=== PATIENT | male | born 1960 | race African-American/Black ===

== ENCOUNTER 2016-08-20 09:57 | Emergency (ER) | payer MEDICAID ==
[~2016-08-20] VITALS: Ht 170.2 cm; Wt 96.0 kg
[~2016-08-20 09:57] MED LIST: ASPI-1035 PO
[2016-08-20 10:33] VITALS: BP 123/89
[2016-08-20] MEDS ORDERED: BACITRACIN ZINC OINT UDPKT TOP ONE (11:15)
== END 2016-08-20 11:39 | disposition home or self-care (01) ==
LOC: ER 10:40
DX: S30.812A Abrasion of penis, initial encounter (principal); X58.XXXA Exposure to other specified factors, initial encounter; Y93.89 Activity, other specified; Y92.89 Other specified places as the place of occurrence of the external cause; I11.0 Hypertensive heart disease with heart failure; I50.9 Heart failure, unspecified; E11.9 Type 2 diabetes mellitus without complications; Z95.0 Presence of cardiac pacemaker
CPT/HCPCS: 99283

== ENCOUNTER 2016-12-10 08:41 | Emergency (ER) | payer MEDICAID ==
[~2016-12-10] VITALS: Ht 170.2 cm; Wt 72.9 kg
[2016-12-10] MEDS ORDERED: LEVOFLOXACIN 750MG PREMIX 150 ML IV ONE (11:30)
[2016-12-10] MEDS ORDERED: SODIUM CHLORIDE 0.9% 1,000 ML IV ONE (11:30)
[2016-12-10 14:29] VITALS: BP 110/72
== END 2016-12-10 14:35 | disposition home or self-care (01) ==
LOC: ER 10:10
DX: J18.9 Pneumonia, unspecified organism (principal); I10 Essential (primary) hypertension; E11.9 Type 2 diabetes mellitus without complications; E78.00 Pure hypercholesterolemia, unspecified; F17.210 Nicotine dependence, cigarettes, uncomplicated; Z71.6 Tobacco abuse counseling
CPT/HCPCS: 71020; 96365; 99284; 99406; J1956; J7030

== ENCOUNTER 2017-06-11 08:26 | Emergency (ER) | payer MEDICAID ==
[~2017-06-11] VITALS: Ht 170.2 cm; Wt 80.0 kg
[2017-06-11 08:39] VITALS: BP 147/80
== END 2017-06-11 12:02 | disposition home or self-care (01) ==
LOC: ER 08:36
DX: R91.8 Other nonspecific abnormal finding of lung field (principal); R05 Cough; F17.210 Nicotine dependence, cigarettes, uncomplicated; J44.9 Chronic obstructive pulmonary disease, unspecified; I10 Essential (primary) hypertension; E11.9 Type 2 diabetes mellitus without complications; E78.5 Hyperlipidemia, unspecified; Z95.0 Presence of cardiac pacemaker
CPT/HCPCS: 71045; 71250; 99284

== ENCOUNTER 2017-11-17 07:57 | Emergency (ER) | payer MEDICAID ==
[~2017-11-17] VITALS: Ht 170.2 cm; Wt 76.0 kg
[2017-11-17] MEDS ORDERED: LIDOCAINE HCL 1% 20ML VIAL (Pyxis) INJ INFIL ONE (10:00)
[2017-11-17] MEDS ORDERED: ACETAMINOPHEN WITH CODEINE 300/30MG TABLET PO ONE (10:00)
[2017-11-17] MEDS ORDERED: LIDOCAINE HCL/PF 1% 10 MG/ML 5ML VIAL IJ ONE (10:15)
[2017-11-17 10:29] VITALS: BP 124/82
== END 2017-11-17 11:34 | disposition home or self-care (01) ==
LOC: ER 08:55
DX: L02.413 Cutaneous abscess of right upper limb (principal); E11.9 Type 2 diabetes mellitus without complications; F17.200 Nicotine dependence, unspecified, uncomplicated
CPT/HCPCS: 10060; 99283; J3490

== ENCOUNTER 2018-01-03 07:58 | Emergency (ER) | payer MEDICAID ==
[~2018-01-03] VITALS: Ht 170.2 cm; Wt 81.4 kg
[2018-01-03] MEDS ORDERED: LIDOCAINE HCL 1% 20ML VIAL (Pyxis) INJ INFIL ONE (10:00)
[2018-01-03] MEDS ORDERED: LIDOCAINE HCL/PF 1% 10 MG/ML 5ML VIAL IJ NR (10:15)
[2018-01-03 11:45] VITALS: BP 116/88
== END 2018-01-03 12:05 | disposition home or self-care (01) ==
LOC: ER 08:28
DX: L03.317 Cellulitis of buttock (principal); L02.31 Cutaneous abscess of buttock; E11.9 Type 2 diabetes mellitus without complications; F17.200 Nicotine dependence, unspecified, uncomplicated
CPT/HCPCS: 10060; 99283; J3490; Z7610

== ENCOUNTER 2019-06-13 11:15 | Inpatient (IN) | payer OTHER, MEDICAID ==
[~2019-06-13] VITALS: Ht 170.2 cm; Wt 82.1 kg
[2019-06-13 14:04] LABS: BASOPHILS % 0.1 % (0.0-2.0); EOSINOPHILS % 0.3 % (0.0-5.0); HEMATOCRIT. 43.9 % (42.0-52.0); HEMOGLOBIN. 14.5 g/dL (14.0-18.0); LYMPHOCYTES % 25.3 % (20.0-50.0); MEAN CORPUSCULAR HEMOGLOBIN 28.8 pg (28.0-32.0); MEAN CORPUSCULAR VOLUME 87.4 fL (80.0-94.0); MEAN PLATELET VOLUME 8.7 fl (7.4-10.4); MONOCYTES % 5.6 % (2.0-8.0); NEUTROPHILS % 68.7 % (40.0-76.0); PLATELET 207 x1000/uL (130-400); RED BLOOD CELL COUNT 5.02 mill/uL (4.7-6.1); RED CELL DISTRIBUTION WIDTH 14.6 % (11.6-14.6)
[2019-06-13 14:10] LABS: CHLORIDE 104 mEq/L (98-107)
[2019-06-13 14:14] LABS: ETHANOL BLOOD < 10 mg/dL
[2019-06-13 14:14] LABS: CLARITY URINE CLEAR (CLEAR); COLOR URINE YELLOW (YELLOW); KETONES URINE NEGATIVE (NEGATIVE); LEUKOCYTE ESTERASE URINE NEGATIVE (NEGATIVE); NITRITE URINE NEGATIVE (NEGATIVE); OCCULT BLOOD URINE NEGATIVE (NEGATIVE); PH URINE 5.5 (4.5-8.0); PROTEIN URINE NEGATIVE (NEGATIVE); UROBILINOGEN URINE 0.2 E.U./dL (0.2-1.0)
[2019-06-13 14:36] LABS: *AMPHETAMINES SCREEN URINE NEGATIVE (NEGATIVE); *BARBITURATES SCREEN URINE NEGATIVE (NEGATIVE); *BENZODIAZEPINES SCREEN URINE NEGATIVE (NEGATIVE); *COCAINE SCREEN URINE NEGATIVE (NEGATIVE)
[2019-06-13] MEDS ORDERED: SODIUM CHLORIDE 0.9% 1,000 ML IV ONE (14:36)
[2019-06-13 14:37] LABS: METHADONE URINE SCREEN NEGATIVE (NEGATIVE); OPIATES URINE SCREEN NEGATIVE (NEGATIVE)
[2019-06-13 14:38] LABS: CANNABINOID URINE SCREEN PRESUMTIVE POSITIVE (NEGATIVE); PHENCYCLIDINE URINE SCREEN NEGATIVE (NEGATIVE)
[2019-06-13] MEDS ORDERED: HYDROCODONE/ACETAMINOPHEN 5/325MG TABLET PO PRN (19:00)
[2019-06-13] MEDS ORDERED: IPRATROPIUM/ALBUTEROL 0.5-3(2.5)MG/3ML NEB NEB PRN (19:00)
[2019-06-13] MEDS ORDERED: LORAZEPAM 0.5MG TABLET PO PRN (19:00)
[2019-06-13] MEDS ORDERED: MAGNESIUM/ALUMINUM HYDROXIDE/SIMETHICONE 30ML UDC PO PRN (19:00)
[2019-06-13] MEDS ORDERED: CLONIDINE 0.1MG TABLET PO PRN (19:00)
[2019-06-13] MEDS ORDERED: ACETAMINOPHEN 325MG TABLET PO PRN (19:00)
[2019-06-13] MEDS ORDERED: GUAIFENESIN 200MG/10ML SUGAR FREE UDC PO PRN (19:00)
[2019-06-13] MEDS ORDERED: ACETAMINOPHEN 650MG SUPP PR PRN (19:00)
[2019-06-13] MEDS ORDERED: DOCUSATE SODIUM 100MG CAPSULE PO PRN (19:00)
[2019-06-13] MEDS ORDERED: DEXTROSE 50% WATER 50ML SYRINGE IV PRN (19:00)
[2019-06-13] MEDS ORDERED: NA PHOS,M-B/NA PHOS,DI-BA ENEMA 118ML PR PRN (19:00)
[2019-06-13] MEDS ORDERED: ONDANSETRON HCL 4MG/2ML INJ IV PRN (19:00)
[2019-06-13 21:30] VITALS: BP 106/68
[2019-06-13] MEDS: SODIUM CHLORIDE 0.45% 1,000 ML IV SCH (23:55)
[2019-06-13] MEDS: NICOTINE 21MG PATCH TD SCH (23:56)
[2019-06-14] VITALS (12 sets, daily range): BP systolic 90–121; BP diastolic 49–79
[2019-06-14 01:06] LABS: CREATINE KINASE 162 IU/L (39-308)
[2019-06-14 01:07] LABS: CREATINE KINASE MB FRACTION 1.7 ng/mL (0.5-3.6)
[2019-06-14 06:09] LABS: BASOPHILS % 0.3 % (0.0-2.0); EOSINOPHILS % 0.8 % (0.0-5.0); HEMATOCRIT. 40.9 % (42.0-52.0); HEMOGLOBIN. 13.4 g/dL (14.0-18.0); LYMPHOCYTES % 43.9 % (20.0-50.0); MEAN CORPUSCULAR HEMOGLOBIN 28.6 pg (28.0-32.0); MEAN CORPUSCULAR VOLUME 87.1 fL (80.0-94.0); MEAN PLATELET VOLUME 8.8 fl (7.4-10.4); MONOCYTES % 5.9 % (2.0-8.0); NEUTROPHILS % 49.1 % (40.0-76.0); PLATELET 201 x1000/uL (130-400)
[2019-06-14] MEDS: BLOOD SUGAR DIAGNOSTIC STRIP TEST SCH ×4 (06:37→21:41)
[2019-06-14 07:17] LABS: PROTHROMBIN TIME 10.4 sec (9.6-11.0)
[2019-06-14 08:01] LABS: CHLORIDE 103 mEq/L (98-107)
[2019-06-14 08:11] LABS: CREATINE KINASE MB FRACTION 1.1 ng/mL (0.5-3.6)
[2019-06-14 08:12] LABS: LDL CHOLESTEROL 138 mg/dL (5-100)
[2019-06-14 08:13] LABS: CREATINE KINASE 153 IU/L (39-308); HDL CHOLESTEROL 38 mg/dL (40-59); T4 FREE 1.01 ng/dL (0.76-1.46)
[2019-06-14] MEDS: INSULIN LISPRO 100 UNITS/ML SUBCUT SCH ×4 (08:39→21:45)
[2019-06-14] MEDS: ASPIRIN 81MG EC TABLET PO SCH (08:40)
[2019-06-14] MEDS: ENOXAPARIN 40MG/0.4ML SYR SUBCUT SCH (08:41)
[2019-06-14] MEDS: NICOTINE 21MG PATCH TD SCH (08:41)
[2019-06-14] MEDS ORDERED: INSULIN GLARGINE UD 100 UNITS/ML SYR SUBCUT NR (13:30)
[2019-06-14] MEDS: SODIUM CHLORIDE 0.45% 1,000 ML IV SCH (16:58)
[2019-06-14] MEDS: ATORVASTATIN CALCIUM 20MG TABLET PO SCH (21:45)
[2019-06-15] VITALS: BP 111/62
[2019-06-15 04:00] VITALS: BP 94/59
[2019-06-15] MEDS: SODIUM CHLORIDE 0.45% 1,000 ML IV SCH ×3 (04:20→17:34)
[2019-06-15 05:04] LABS: HEMATOCRIT 43.6 % (42.0-52.0); HEMOGLOBIN 14.4 g/dL (14.0-18.0); MEAN CORPUSCULAR HEMOGLOBIN 28.7 pg (28.0-32.0); MEAN CORPUSCULAR VOLUME 87.1 fL (80.0-94.0); PLATELET 209 x1000/uL (130-400); RED CELL DISTRIBUTION WIDTH 14.8 % (11.6-14.6)
[2019-06-15 05:19] LABS: CHLORIDE 106 mEq/L (98-107)
[2019-06-15 06:00] VITALS: BP_SYST 102; BP_SYST 109; BP_SYST 110; BP_DIAS 62; BP_DIAS 69; BP_DIAS 70
[2019-06-15] MEDS: BLOOD SUGAR DIAGNOSTIC STRIP TEST SCH ×4 (06:42→20:46)
[2019-06-15] MEDS: NICOTINE 21MG PATCH TD SCH (09:31)
[2019-06-15] MEDS: ASPIRIN 81MG EC TABLET PO SCH (09:31)
[2019-06-15] MEDS: ENOXAPARIN 40MG/0.4ML SYR SUBCUT SCH (09:33)
[2019-06-15] MEDS: INSULIN GLARGINE UD 100 UNITS/ML SYR SUBCUT SCH (09:43)
[2019-06-15] MEDS: INSULIN LISPRO 100 UNITS/ML SUBCUT SCH ×4 (09:46→21:02)
[2019-06-15 12:00] VITALS: BP 111/71
[2019-06-15 14:00] VITALS: BP_SYST 110; BP_SYST 112; BP_SYST 115; BP_DIAS 70; BP_DIAS 71; BP_DIAS 72
[2019-06-15 20:00] VITALS: BP 110/66
[2019-06-15] MEDS: ATORVASTATIN CALCIUM 20MG TABLET PO SCH (20:56)
[2019-06-16] VITALS (7 sets, daily range): BP systolic 104–148; BP diastolic 59–89
[2019-06-16] MEDS: BLOOD SUGAR DIAGNOSTIC STRIP TEST SCH ×4 (06:23→21:02)
[2019-06-16] MEDS: ASPIRIN 81MG EC TABLET PO SCH (08:33)
[2019-06-16] MEDS: SODIUM CHLORIDE 0.45% 1,000 ML IV SCH (08:34)
[2019-06-16] MEDS: ENOXAPARIN 40MG/0.4ML SYR SUBCUT SCH (08:34)
[2019-06-16] MEDS: NICOTINE 21MG PATCH TD SCH (08:34)
[2019-06-16] MEDS: INSULIN LISPRO 100 UNITS/ML SUBCUT SCH ×4 (08:42→21:41)
[2019-06-16] MEDS: INSULIN GLARGINE UD 100 UNITS/ML SYR SUBCUT SCH (09:32)
[2019-06-16] MEDS ORDERED: REGADENOSON 0.4 MG/5 ML IV NR (16:00)
[2019-06-16] MEDS: ATORVASTATIN CALCIUM 20MG TABLET PO SCH (21:20)
[2019-06-17] VITALS: BP 95/57
[2019-06-17] MEDS ORDERED: DEXT 5%/0.9% NACL 1,000 ML IV SCH
[2019-06-17 04:00] VITALS: BP 96/54
[2019-06-17] MEDS: BLOOD SUGAR DIAGNOSTIC STRIP TEST SCH ×4 (06:00→21:00)
[2019-06-17 06:37] LABS: HEMATOCRIT 44.3 % (42.0-52.0); HEMOGLOBIN 14.3 g/dL (14.0-18.0); MEAN CORPUSCULAR HEMOGLOBIN 28.3 pg (28.0-32.0); MEAN CORPUSCULAR VOLUME 87.8 fL (80.0-94.0); PLATELET 223 x1000/uL (130-400); RED BLOOD CELL COUNT 5.04 mill/uL (4.7-6.1); RED CELL DISTRIBUTION WIDTH 14.5 % (11.6-14.6)
[2019-06-17 08:00] VITALS: BP_SYST 102; BP_SYST 104; BP_DIAS 74
[2019-06-17 08:03] LABS: CHLORIDE 107 mEq/L (98-107)
[2019-06-17] MEDS: INSULIN LISPRO 100 UNITS/ML SUBCUT SCH ×4 (08:19→21:53)
[2019-06-17] MEDS: NICOTINE 21MG PATCH TD SCH (08:21)
[2019-06-17] MEDS: ENOXAPARIN 40MG/0.4ML SYR SUBCUT SCH (08:21)
[2019-06-17] MEDS: ASPIRIN 81MG EC TABLET PO SCH (08:21)
[2019-06-17] MEDS ORDERED: REGADENOSON 0.4 MG/5 ML IV ONE (11:03)
[2019-06-17 12:00] VITALS: BP_SYST 112; BP_SYST 122; BP_SYST 128; BP_DIAS 67; BP_DIAS 75; BP_DIAS 83
[2019-06-17] MEDS: INSULIN GLARGINE UD 100 UNITS/ML SYR SUBCUT SCH (12:45)
[2019-06-17 16:00] VITALS: BP 101/65
[2019-06-17 20:00] VITALS: BP_SYST 105; BP_SYST 107; BP_DIAS 69; BP_DIAS 79
[2019-06-17] MEDS: ATORVASTATIN CALCIUM 20MG TABLET PO SCH (21:50)
[2019-06-18] VITALS: BP 106/61
[2019-06-18 04:00] VITALS: BP 124/85
[2019-06-18] MEDS: INSULIN LISPRO 100 UNITS/ML SUBCUT SCH ×3 (07:02→17:35)
[2019-06-18] MEDS: BLOOD SUGAR DIAGNOSTIC STRIP TEST SCH ×4 (07:02→21:00)
[2019-06-18 08:00] VITALS: BP 115/70
[2019-06-18] MEDS: ASPIRIN 81MG EC TABLET PO SCH (09:00)
[2019-06-18] MEDS: NICOTINE 21MG PATCH TD SCH (09:16)
[2019-06-18] MEDS: INSULIN GLARGINE UD 100 UNITS/ML SYR SUBCUT SCH (10:00)
[2019-06-18 12:00] VITALS: BP 123/83
[2019-06-18 16:00] VITALS: BP 123/67
[2019-06-18] MEDS ORDERED: MORPHINE SULFATE 2 MG/ML CPJ (NOT FOR IM USE) IV PRN (16:00)
[2019-06-18 20:00] VITALS: BP 117/74
[2019-06-18] MEDS: ATORVASTATIN CALCIUM 20MG TABLET PO SCH (20:51)
[2019-06-19] VITALS (7 sets, daily range): BP systolic 98–148; BP diastolic 45–70
[2019-06-19] MEDS: BLOOD SUGAR DIAGNOSTIC STRIP TEST SCH ×4 (07:20→20:31)
[2019-06-19 07:25] LABS: HEMATOCRIT 46.4 % (42.0-52.0); MEAN CORPUSCULAR HEMOGLOBIN 28.1 pg (28.0-32.0); PLATELET 238 x1000/uL (130-400); RED BLOOD CELL COUNT 5.33 mill/uL (4.7-6.1); RED CELL DISTRIBUTION WIDTH 14.3 % (11.6-14.6)
[2019-06-19 07:37] LABS: CHLORIDE 104 mEq/L (98-107)
[2019-06-19] MEDS ORDERED: LIDOCAINE HCL 1% 20ML VIAL (Pyxis) INJ ONE (08:40)
[2019-06-19] MEDS ORDERED: CEFAZOLIN 1000MG PREMIX 0 ML IV ONE (08:40)
[2019-06-19] MEDS ORDERED: GENTAMICIN SULF 40MG/ML 2ML VIAL ONE (08:40)
[2019-06-19] MEDS ORDERED: IODIXANOL 320MG/ML 100 ML BOTTLE IV ONE (08:42)
[2019-06-19] MEDS: NICOTINE 21MG PATCH TD SCH (08:46)
[2019-06-19] MEDS ORDERED: PROPOFOL 10MG/ML 100ML 100 ML IV ONE (08:52)
[2019-06-19] MEDS ORDERED: MIDAZOLAM HCL 2 MG/2 ML VIAL ONE ×2 (09:00→09:03)
[2019-06-19] MEDS ORDERED: CEFAZOLIN SODIUM 1000MG/VIAL ONE (09:01)
[2019-06-19] MEDS ORDERED: GENTAMICIN/NS IRRIGATION 500 ML IR ONE (09:24)
[2019-06-19] MEDS ORDERED: HYDROCODONE/ACETAMINOPHEN 5/325MG TABLET PO PRN (10:30)
[2019-06-19] MEDS ORDERED: SODIUM CHLORIDE 0.9% 1,000 ML IV ONE (10:41)
[2019-06-19] MEDS ORDERED: ONDANSETRON HCL 4MG/2ML INJ IV PRN (10:45)
[2019-06-19] MEDS ORDERED: MEPERIDINE HCL/PF 25MG/ML CPJ IV PRN (10:45)
[2019-06-19] MEDS ORDERED: MORPHINE SULFATE 2 MG/ML CPJ (NOT FOR IM USE) IV PRN (10:45)
[2019-06-19] MEDS ORDERED: HYDROMORPHONE HCL/PF 2MG/ML CPJ IV PRN (10:45)
[2019-06-19] MEDS: INSULIN LISPRO 100 UNITS/ML SUBCUT SCH ×3 (13:02→20:37)
[2019-06-19] MEDS: ATORVASTATIN CALCIUM 20MG TABLET PO SCH (20:38)
[2019-06-20] VITALS (9 sets, daily range): BP systolic 101–135; BP diastolic 53–83
[2019-06-20] MEDS: BLOOD SUGAR DIAGNOSTIC STRIP TEST SCH ×2 (06:11→11:39)
[2019-06-20 07:15] LABS: BASOPHILS % 0.3 % (0.0-2.0); HEMATOCRIT. 44.2 % (42.0-52.0); HEMOGLOBIN. 14.3 g/dL (14.0-18.0); LYMPHOCYTES % 33.6 % (20.0-50.0); MEAN CORPUSCULAR HEMOGLOBIN 28.6 pg (28.0-32.0); MEAN CORPUSCULAR VOLUME 88.1 fL (80.0-94.0); MEAN PLATELET VOLUME 8.6 fl (7.4-10.4); MONOCYTES % 8.9 % (2.0-8.0); NEUTROPHILS % 55.2 % (40.0-76.0); PLATELET 213 x1000/uL (130-400); RED BLOOD CELL COUNT 5.02 mill/uL (4.7-6.1); RED CELL DISTRIBUTION WIDTH 14.2 % (11.6-14.6)
[2019-06-20 07:33] LABS: CHLORIDE 105 mEq/L (98-107)
[2019-06-20] MEDS: ASPIRIN 81MG EC TABLET PO SCH (09:23)
[2019-06-20] MEDS: INSULIN LISPRO 100 UNITS/ML SUBCUT SCH ×2 (09:23→12:10)
[2019-06-20] MEDS: NICOTINE 21MG PATCH TD SCH (09:23)
[2019-06-20] MEDS: INSULIN GLARGINE UD 100 UNITS/ML SYR SUBCUT SCH (09:24)
== END 2019-06-20 14:10 | disposition home or self-care (01) | DRG 243 ==
LOC: ER 11:15 → EDBEDREQ 12:39 → 6WST 15:03 → EDBEDREQ 15:05 → SUPCPDRO 18:57 → ENRESERV 19:45 → 3WST 06-19 11:03
PROVIDERS: ADMIT Internal Medicine; ATTEND Internal Medicine
PROC: 4B02XTZ Measurement of Cardiac Defibrillator, External Approach (ICD-10-PCS; 2019-06-15)
PROC: 0JH606Z Insertion of Pacemaker, Dual Chamber into Chest Subcutaneous Tissue and Fascia, Open Approach (ICD-10-PCS; principal; 2019-06-19)
PROC: 02HK3JZ Insertion of Pacemaker Lead into Right Ventricle, Percutaneous Approach (ICD-10-PCS; 2019-06-19)
PROC: 02H63JZ Insertion of Pacemaker Lead into Right Atrium, Percutaneous Approach (ICD-10-PCS; 2019-06-19)
PROC: B5171ZZ Fluoroscopy of Left Subclavian Vein using Low Osmolar Contrast (ICD-10-PCS; 2019-06-19)
DX: I44.0 Atrioventricular block, first degree (principal); E87.1 Hypo-osmolality and hyponatremia; E78.5 Hyperlipidemia, unspecified; F17.210 Nicotine dependence, cigarettes, uncomplicated; I25.10 Atherosclerotic heart disease of native coronary artery without angina pectoris; I11.0 Hypertensive heart disease with heart failure; E11.65 Type 2 diabetes mellitus with hyperglycemia; E11.649 Type 2 diabetes mellitus with hypoglycemia without coma; F12.90 Cannabis use, unspecified, uncomplicated; I44.4 Left anterior fascicular block; I50.9 Heart failure, unspecified; G90.8 Other disorders of autonomic nervous system; Z91.14 Patient's other noncompliance with medication regimen; Z91.19 Patient's noncompliance with other medical treatment and regimen; Z95.810 Presence of automatic (implantable) cardiac defibrillator
CPT/HCPCS: 33208; 36415; 71045; 75820; 78452; 80048; 80053; 80061; 80305; 80320; 81003; 82550; 82553; 82962; 83036; 83735; 83880; 84439; 84443; 84484; 85025; 85027; 93005; 93017; 93306; 93880; 93970; 97162; 99285; 99406; A4565; A9500; C1785; C1893; C1898; J0690; J1580; J1650; J1815; J2250; J2704; J2785; J3490; J7030; J7042; Q9967; G0480

== ENCOUNTER 2019-10-27 07:50 | Emergency (ER) | payer OTHER, MEDICAID ==
[~2019-10-27] VITALS: Ht 170.2 cm; Wt 79.0 kg
[2019-10-27] MEDS ORDERED: SODIUM CHLORIDE 0.9% 1,000 ML IV ONE (08:26)
[2019-10-27 08:50] LABS: BASOPHILS % 0.7 % (0.0-2.0); EOSINOPHILS % 0.5 % (0.0-5.0); HEMATOCRIT. 44.1 % (42.0-52.0); HEMOGLOBIN. 14.6 g/dL (14.0-18.0); LYMPHOCYTES % 31.5 % (20.0-50.0); MEAN CORPUSCULAR HEMOGLOBIN 28.6 pg (28.0-32.0); MEAN CORPUSCULAR VOLUME 86.5 fL (80.0-94.0); MONOCYTES % 6.5 % (2.0-8.0); NEUTROPHILS % 60.8 % (40.0-76.0); PLATELET 199 x1000/uL (130-400); RED CELL DISTRIBUTION WIDTH 14.5 % (11.6-14.6)
[2019-10-27 08:52] LABS: BG BASE EXCESS -2.3 mmol/L (-2.0-2.0); BG CARBOXYHEMOGLOBIN 4.9 % (0.5-1.5); BG DEOXYHEMOGLOBIN 2.5 % (0.0-5.0); BG FRACTION INSPIRED OXYGEN 21; BG HCO3 ACT 23.3 mmol/L (22.0-26.0); BG METHEMOGLOBIN 0.3 % (0.0-1.5); BG OXYGEN SATURATION 97.4 % (92.0-98.5); BG OXYHEMOGLOBIN 92.3 % (94.0-97.0); BG PH 7.352 (7.350-7.450); BG SAMPLE SITE RIGHT BRACHIAL; BG TOTAL HEMOGLOBIN 14.5 g/dL (12.0-18.0); BG VENT MODE ROOM AIR
[2019-10-27 08:53] LABS: CHLORIDE 103 mEq/L (98-107)
[2019-10-27 08:55] LABS: CLARITY URINE CLEAR (CLEAR); COLOR URINE YELLOW (YELLOW); KETONES URINE 1+ (NEGATIVE); LEUKOCYTE ESTERASE URINE NEGATIVE (NEGATIVE); NITRITE URINE NEGATIVE (NEGATIVE); OCCULT BLOOD URINE NEGATIVE (NEGATIVE); PROTEIN URINE NEGATIVE (NEGATIVE); SPECIFIC GRAVITY URINE 1.037 (1.005-1.030); UROBILINOGEN URINE 0.2 E.U./dL (0.2-1.0)
[2019-10-27] MEDS ORDERED: INSULIN REGULAR (HUMULIN R) 300UNITS/3ML SUBCUT ONE (09:15)
[2019-10-27 11:08] VITALS: BP 129/74
== END 2019-10-27 11:11 | disposition home or self-care (01) ==
LOC: ER 07:50
DX: E11.65 Type 2 diabetes mellitus with hyperglycemia (principal); R63.1 Polydipsia; R35.8 Other polyuria; I10 Essential (primary) hypertension; Z95.0 Presence of cardiac pacemaker; Z79.4 Long term (current) use of insulin
CPT/HCPCS: 36415; 36600; 71045; 80053; 81003; 82375; 82805; 82962; 83735; 84100; 85025; 96360; 96361; 96372; 99284; J1815; J7030

== ENCOUNTER 2020-03-03 09:05 | Emergency (ER) | payer OTHER, MEDICAID ==
[~2020-03-03] VITALS: Ht 170.2 cm; Wt 79.0 kg
[2020-03-03] MEDS ORDERED: ACETAMINOPHEN 325MG TABLET PO ONE (09:30)
[2020-03-03] MEDS ORDERED: LIDOCAINE HCL/EPINEPHRINE 1%-EPI 1:100,000 20 ML VIAL INFIL ONE (09:30)
[2020-03-03 09:58] VITALS: BP 115/87
[2020-03-03] MEDS ORDERED: LIDOCAINE 1%/EPI 1:100,000 10 ML VIAL IJ SCH (12:00)
== END 2020-03-03 09:59 | disposition home or self-care (01) ==
LOC: ER 09:18
DX: S51.812A Laceration without foreign body of left forearm, initial encounter (principal); W26.8XXA Contact with other sharp object(s), not elsewhere classified, initial encounter; Y93.89 Activity, other specified; Y92.89 Other specified places as the place of occurrence of the external cause; Y99.8 Other external cause status; E11.9 Type 2 diabetes mellitus without complications; I10 Essential (primary) hypertension; Z95.0 Presence of cardiac pacemaker; I49.9 Cardiac arrhythmia, unspecified
CPT/HCPCS: 12002; 99282; J3490